=== PATIENT | female | born 1930 | race Caucasian/White ===

== ENCOUNTER 2017-04-17 12:02 | Emergency (ER) | payer MEDICARE ==
[~2017-04-17] VITALS: Ht 157.5 cm; Wt 56.0 kg
[2017-04-17 12:05] VITALS: Ht 157.5 cm; Wt 56.0 kg
[2017-04-17] MEDS ORDERED: CETI10CA PO (13:14)
[2017-04-17] MEDS ORDERED: PRED20TA PO (13:18)
--- NOTE | 2017-04-17 13:28 | ERD ---
ER Documentation Chief Complaint Date/Time DATE: 04/17/17 TIME: 13:24 Chief Complaint Complains of a generalized rash HPI This 86-year-old female presents with her daughter with a itchy rash on her trunk for the last week. She has tried hydrocortisone without relief. She is visiting from out of town. Patient is being treated for dementia and takes lamotrigine. She has been on this for several years. No history of chest pain , shortness breath, fevers, additional complaints other than the rash. ROS All systems reviewed and are negative except as per history of present illness. Medications Home Meds Active Scripts Prednisone* (Prednisone*) 20 Mg Tab, 20 MG PO DAILY for 4 Days, TAB Start April 18, 2017 Prov:ENRICO OSORIO MD 04/17/17 Cetirizine Hcl* (Zyrtec*) 10 Mg Capsule, 10 MG PO DAILY, #15 TAB.CHEW Prov:ENIRCO OOSRIO MD 04/17/17 Allergies Allergies: Coded Allergies: No Known Allergy (Unverified , 04/17/17) PMhx/Soc Hx Cardiac Disorders: Yes (htn) Hx Miscellaneous Medical Probl: Yes (high cholesterol) Physical Exam Vitals Vital Signs Date Time Temp Pulse Resp B/P Pulse Ox O2 Delivery O2 Flow Rate FiO2 04/17/17 12:05 98.8 66 20 171/77 94 Physical Exam Const: [], [id number], pleasant. Head: Atraumatic Eyes: Normal Conjunctiva ENT: Normal External Ears, Nose and Mouth. Neck: Full range of motion..~ No meningismus. Resp: Clear to auscultation bilaterally Cardio: Regular rate and rhythm, no murmurs Abd: Soft, non tender, non distended. Normal bowel sounds Skin: No petechiae or purpura. Scattered faint generalized blanching erythematous rash on the trunk. There is additional rash on the thighs. Back: No midline or flank tenderness Ext: No cyanosis, or edema Neur: Awake and alert Psych: Normal Mood and Affect Results 24 hrs Current Medications Medications (Trade) Dose Ordered Sig/[place] Route PRN Reason Start Time Stop Time Status Last Admin Dose Admin Diphenhydramine HCl (Benadryl) 25 mg ONCE ONCE PO 04/17/17 13:30 04/17/17 13:31 Prednisone (Prednisone) 20 mg ONCE ONCE PO 04/17/17 13:30 04/17/17 13:31 Procedures/MDM Patient presents with a generalized rash which is itchy for the last several days. Certainly lamotrigine can cause a serious rash. He does not have a clinical appearance of a nonblanching macular rash classic for lamotrigine. Review of the record and discussion with primary care takers on the [facility] confirm that her only diagnosis is dementia. Recommending stopping lamotrigine if rash continues to worsen. There is a clinical appearance of a nonspecific allergic reaction we treated with short course of prednisone and Zyrtec and Benadryl calculation. Patient is visiting for 1 additional week instructed to stop lamotrigine rash persists or worsens in any way. She should recheck for additional new worsening symptoms as directed and aftercare instructions. There is no evidence of sepsis, purpura, anaphylaxis, cellulitis. No other symptoms to suggest systemic illness. Departure Diagnosis: Primary Impression: Rash Condition: Stable Patient Instructions: Dermatitis, Non-Specific Additional Instructions: Stop lamotrigine and recheck for worsening red patchy rash. Suspect not unspecified allergy. Recheck otherwise for fevers, shortness breath, new worsening symptoms. Okay to take Benadryl at night for itching as well. ENRICO OSORIO MD Apr 17, 2017 13:28
[2017-04-17] MEDS ORDERED: predniSONE 20 MG TAB PO ONE (13:30)
[2017-04-17] MEDS ORDERED: DIPHENHYDRAMINE 25 MG CAP PO ONE (13:30)
== END 2017-04-17 14:32 | disposition home or self-care (01) ==
LOC: FTE 12:02
DX: R21 Rash and other nonspecific skin eruption (principal); I10 Essential (primary) hypertension
CPT/HCPCS: 99283; J7512